=== PATIENT | male | born 1970 | race Caucasian/White ===

== ENCOUNTER → 2020-06-05 09:26 | Outpatient (CLI) | payer OTHER, SELFPAY ==
--- NOTE | 2020-06-05 09:30 | DI.RAD.S_ITS ---
PROCEDURE: XR CERVICAL SPINE 4V OR 5V INDICATIONS: Cervical radiculopathy TECHNIQUE: 5 views of the cervical spine acquired. COMPARISON: None. FINDINGS: Bones: No fractures or dislocations to the T1 level. Oblique images demonstrate no bony foraminal stenoses. There is a pattern of degenerative disc disease beginning at C4-5 moderate in severity and extending inferiorly to the C7-T1 level. The oblique views show no significant foraminal stenosis and there is mild facet and uncovertebral osteoarthritis through the middle and lower thirds of the cervical spine symmetrically. Soft tissues: No prevertebral soft tissue swelling. IMPRESSION: No trauma found. [id number] degenerative disc disease and facet osteoarthritis best seen over the middle and lower thirds of the cervical spine but without definite nerve root impingement at the neural foramen on oblique imaging. Dictated by: Miguel Angel Westfall M.D. on 06/05/2020 at 10:24 Approved by: Miguel Angel Westfall M.D. on 06/05/2020 at 10:25
== END ==
PROVIDERS: PCP Family Medicine; Referring Provider Family Medicine; Visit Provider Physical Medicine & Rehabilitation
DX: M50.121 Cervical disc disorder at C4-C5 level with radiculopathy (principal); M47.22 Other spondylosis with radiculopathy, cervical region
CPT/HCPCS: 72050; 99214

== ENCOUNTER → 2022-01-08 12:50 | Outpatient (CLI) | payer OTHER, SELFPAY ==
--- NOTE | 2022-01-08 12:53 | DI.RAD.S_ITS ---
PROCEDURE: XR ANKLE LT MIN 3V INDICATIONS: LEFT ANKLE PAIN TECHNIQUE: 3 views of the ankle were acquired. COMPARISON: None. 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 Expected appearance of hardware in the fibula. 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 Dictated by: Eddie Red M.D. on 01/08/2022 at 15:36 Approved by: Eddie Red M.D. on 01/08/2022 at 15:38
== END ==
PROVIDERS: PCP Family Medicine; Referring Provider Physical Medicine & Rehabilitation; Visit Provider Physical Medicine & Rehabilitation
DX: M19.172 Post-traumatic osteoarthritis, left ankle and foot (principal); M25.572 Pain in left ankle and joints of left foot; T14.90XS Injury, unspecified, sequela
CPT/HCPCS: 73610

== ENCOUNTER → 2022-02-02 11:00 | Outpatient (CLI) | payer OTHER, SELFPAY | PROVIDERS: PCP Family Medicine; Referring Provider Physical Medicine & Rehabilitation; Visit Provider Physical Medicine & Rehabilitation | DX: Z53.20 Procedure and treatment not carried out because of patient's decision for unspecified reasons (principal) ==